=== PATIENT | female | born 1990 | race Caucasian/White ===

== ENCOUNTER → 2018-03-23 | Outpatient (CLI) | payer BC ==
--- NOTE | 2018-03-23 12:51 | Diagnostic Imaging Report ---
INDICATION: Anatomic survey. COMPARISON: None available. TECHNIQUE: Multiple real-time grayscale images were obtained over the gravid uterus. FINDINGS: A single live intrauterine gestation is identified in a transverse presentation. The placenta is anteriorly positioned and low lying with a marginal placenta previa. No evidence of placental abruption. cardiac motion is documented at 156 beats per minute. Amniotic fluid index is within normal limits. The intracranial contents are unremarkable. The spine is not well seen secondary to lie. The urinary bladder, four-chamber heart, and three-vessel cord are unremarkable. Prominence of the bilateral renal pelves, with the right measuring 4 mm and left measuring 3 mm. biometrics are symmetric. They are consistent with an estimated gestational age of 21 weeks and 3 days. Therefore, there is an estimated due date based upon this examination of July 26, 2018. Findings are consistent with clinical dating. IMPRESSION: Single live intrauterine gestation in a transverse presentation. Estimated gestational age is 21 weeks and 3 days. Findings are consistent with clinical dating. Marginal placenta previa. Recommend followup ultrasound prior to delivery. The spine is not well visualized secondary to lie, and the bilateral renal pelves are prominent. Recommend a followup ultrasound in 4-6 weeks to reevaluate. Biometrical measurements are as follows: Biparietal 4.86 cm, age 20 weeks 5 days. Head circumference 19.02 cm, age 21 weeks 3 days. Abdominal circumference 16.35 cm, age 21 weeks 3 days. Femur length 3.65 cm, age 21 weeks 5 days. Sonographic estimated age: 21 weeks 3 days. Sonographic estimated date of delivery: 07/31/18. Estimated Weight: 424 gm (+/- 62 gm). LMP percentile: 15%. heart rate: 156 beats per minute. number: 1 of 1. Dictated by: Dictated on workstation # [id number]
== END ==
LOC: RAD 09:47
PROVIDERS: ATTEND Obstetrics & Gynecology
DX: Z36.89 Encounter for other specified antenatal screening (principal); Z3A.21 21 weeks gestation of pregnancy
CPT/HCPCS: 76805

== ENCOUNTER 2018-07-26 13:53 | Observation (INO) | payer BC ==
[~2018-07-26] VITALS: Ht 157.5 cm; Wt 101.4 kg
--- NOTE | 2018-07-26 13:45 | NUR ---
LORELEI BERRY presented to unit via ambulation, with c/o CONTRACTIONS. LORELEI BERRY weighed, gowned, voided, and to bed. EFHM and TOCO applied, VS taken. LORELEI BERRY oriented to bed controls, call light, TV, heat, and A/C controls.
[2018-07-26 14:05] VITALS: BP 107/55
--- NOTE | 2018-07-26 14:24 | NUR ---
Dr Rodriguez called and notified of pt arrival, c/o ctx since this am, increased discharge and some vaginal bleeding. Notified of FHR, ctx pattern, SVE, nitrazine, other assessment findings. Order to run UA and monitor for now.
[2018-07-26 14:48] LABS: BILIRUBIN,URINE NEGATIVE (NEGATIVE); CLARITY,URINE SLIGHTLY CLOUDY; COLOR,URINE YELLOW; GLUCOSE, URINE (UA) NEGATIVE (NEGATIVE); KETONES,URINE NEGATIVE (NEGATIVE); LEUKOCYTE ESTERASE ,URINE 3+ (NEGATIVE); NITRITE,URINE NEGATIVE (NEGATIVE); PH,URINE 6 (5-9); PROTEIN,URINE 1+ (NEGATIVE); UROBILINOGEN,URINE NORMAL (NORMAL)
[2018-07-26 14:56] LABS: BACTERIA,URINE FEW /HPF; WBC,URINE 50-100 /HPF
[2018-07-26 15:55] VITALS: BP 113/58
--- NOTE | 2018-07-26 16:56 | NUR ---
Dr Rodriguez updated on pt status. Order rec'd to start IV, give IV fluids and abx. Dr will come see pt after clinic.
[2018-07-26] MEDS ORDERED: cefTRIAXone FOR IV USE 1,000 MG in WATER (STERILE) FOR INJECTION 10 ML IV ONE (17:15)
[2018-07-26] MEDS ORDERED: D5 LR IV SOLUTION 1,000 ML IV SCH (17:15)
[2018-07-27 07:25] VITALS: BP 101/57
--- NOTE | 2018-07-27 07:51 | History & Physical-OB ---
OB - Chief Complaint & HPI Date/Time Date of Admission: Date of Admission: Date seen by a Provider: Jul 27, 2018 Time Seen by a Provider: 07:30 Chief Complaint/History OB-Reason for Admission/Chief: Hx : 1 Expected Date of Delivery: Jul 26, 2018 Gestational Age in Weeks: 40 Gestational Age in Days: 0 Other reason for admission: Patient presented yesterday for contractions. Reports that they have slowed and lessened in intensity overnight. Admission Nurse Assessment Rev: Yes Allergies and Home Medications Allergies Coded Allergies: No Known Drug Allergies (Unverified , 07/26/18) Patient Home Medication List Home Medication List Reviewed: Yes OB - History Hx of Present Care: Yes Ultrasounds: Normal mid trimester US Obstetrical Complications: None Medical Complications: None Obstetrical History Hx : 1 Patient Past Medical History n/a Social History/Family History Recent Infectious Disease Expo: No Immunizations Date of Influenza Vaccine: Feb 06, 2019 OB - Admission Exam Physical Exam Vitals: Vital Signs 07/26/18 07/26/18 15:55 20:00 Temp 98.5 Pulse 63 Resp 16 B/P (MAP) 113/58 (76) HEENT: NCAT Heart: Rhythm Normal Lungs: Clear Abdomen: Gravid Extremities: Normal Reflexes: Normal Cervical Dilatation: 1cm Effacement: 75% Station: -1 Membranes: Intact Amniotic Fluid: Clear Heart Rate: 130's Accelerations: Accelerations Present Decelerations: No Decelerations Short Term Variability: Present Sizer Machine Variability: Average (6-25) Contractions on Admission: 6-10 Minutes Apart Intensity: Mild Labs Laboratory Tests Test 07/26/18 14:15 Range/Units Urine Color YELLOW Urine Clarity SLIGHTLY CLOUDY Urine pH 6 5-9 Urine Specific [place] 1.020 1.016-1.022 Urine Protein 1+ H NEGATIVE Urine Glucose (UA) NEGATIVE NEGATIVE Urine Ketones NEGATIVE NEGATIVE Urine Nitrite NEGATIVE NEGATIVE Urine Bilirubin NEGATIVE NEGATIVE Urine Urobilinogen NORMAL NORMAL MG/DL Urine Leukocyte Esterase 3+ H NEGATIVE Urine RBC (Auto) 5+ H NEGATIVE Urine RBC 10-25 H /HPF Urine WBC 50-100 H /HPF Urine Squamous Epithelial Cells 10-25 H /HPF Urine Crystals NONE /LPF Urine Bacteria FEW H /HPF Urine Casts NONE /LPF Urine Mucus NEGATIVE /LPF Urine Culture Indicated YES OB - Assessment/Plan/Diagnosis Assessment Admission Dx 28 yo @ 40 weeks Prolonged latent phase labor GBS neg Admission Status: Observation Reason for Inpatient Admission: Prolonged latent phase labor Plan Other Plan DC patient home with labor precautions. Scheduled induction for Monday. MIGUELANGEL YA DO Jul 27, 2018 07:51
--- NOTE | 2018-07-27 08:08 | NUR ---
Discharge instructions explained to pt with copy provided to pt. Pt verbalizes understanding of instructions, denies questions or concerns at this time. Instructed pt to return Monday night around 1900 for IOL. Ambulates self off unit accompanied by family to private vehicle. No s/s of distress noted.
--- OUTSIDE RECORDS SUMMARY | 2018-07-27 09:21 | XMS REPORT ---
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
--- OUTSIDE RECORDS SUMMARY | 2018-07-27 09:21 | XMS REPORT ---
Author Author LUCHO HOLMAN Organization [facility] Address [address] [place] [address] Care Team Providers Care School Counsellor Name Role Phone LUCHO HOLMAN Unavailable PROBLEMS Unknown Problems ALLERGIES No Information ENCOUNTERS Encounter Location Date Diagnosis [place] [id number] [place] [phone] Jan, Encounter for immunization Z23 [place] [id number] [place] [phone] Mar, Encounter for immunization Z23 [place] [id number] [place] [phone] August, Adjustment disorder, unspecified type F43.20 IMMUNIZATIONS Vaccine Route Administration Date Status FLUARIX QUAD (3 AND UP) 2017 IM Intramuscular Feb 08, 2017 Administered SOCIAL HISTORY Never Assessed REASON FOR VISIT Flu shot PLAN OF CARE VITAL SIGNS MEDICATIONS Unknown Medications RESULTS No Results PROCEDURES Procedure Date Ordered Result Body Site FLUARIX QUAD (3 & UP)-GSK-2014Feb 08, 2017 SINGLE IMMUNIZATION ADMIN Feb 08, 2017 INSTRUCTIONS MEDICATIONS ADMINISTERED No Known Medications
== END 2018-07-27 09:00 | disposition home or self-care (01) ==
LOC: WSo 13:53 → LDRP 13:53 → WSo 07-27 09:00 → LDRP 07-27 09:00
PROVIDERS: ADMIT Obstetrics & Gynecology; ATTEND Obstetrics & Gynecology
DX: O47.1 False labor at or after 37 completed weeks of gestation (principal); Z3A.40 40 weeks gestation of pregnancy
CPT/HCPCS: 81000; 87088; 96361; 96374

== ENCOUNTER 2018-07-29 05:49 | Inpatient (IN) | payer BC ==
[~2018-07-29] VITALS: Ht 170.2 cm; Wt 100.2 kg
[2018-07-29] VITALS (38 sets, daily range): BP systolic 87–123; BP diastolic 44–84
--- NOTE | 2018-07-29 05:57 | NUR ---
LORELEI BERRY presented to unit via ambulation from ED, accompanied by s.o. and family members, with c/o CONTRACTIONS. LORELEI BERRY weighed, gowned, voided, and to bed. EFHM and TOCO applied, VS taken. LORELEI BERRY oriented to bed controls, call light, TV, heat, and A/C controls.
[2018-07-29] MEDS ORDERED: D5 LR IV SOLUTION 1,000 ML IV SCH (06:13)
[2018-07-29] MEDS ORDERED: MINERAL OIL CONCENTRATE 99.9% 15 ML UDC TOP PRN (06:15)
[2018-07-29] MEDS ORDERED: D5 LR IV SOLUTION 1,000 ML IV ONE (06:38)
[2018-07-29 06:42] LABS: BILIRUBIN,URINE NEGATIVE (NEGATIVE); CLARITY,URINE CLEAR; COLOR,URINE YELLOW; GLUCOSE, URINE (UA) NEGATIVE (NEGATIVE); KETONES,URINE NEGATIVE (NEGATIVE); LEUKOCYTE ESTERASE ,URINE 2+ (NEGATIVE); NITRITE,URINE NEGATIVE (NEGATIVE); PH,URINE 7 (5-9); PROTEIN,URINE NEGATIVE (NEGATIVE); UROBILINOGEN,URINE NORMAL (NORMAL)
[2018-07-29 06:56] LABS: BACTERIA,URINE FEW /HPF
--- NOTE | 2018-07-29 07:53 | History & Physical-OB ---
OB - Chief Complaint & HPI Date/Time Date of Admission: Date of Admission: Jul 29, 2018 at 06:13 Date seen by a Provider: Jul 29, 2018 Time Seen by a Provider: 07:50 Chief Complaint/History OB-Reason for Admission/Chief: Onset of Labor Hx : 1 Hx Para: 0 Expected Date of Delivery: Jul 26, 2018 Gestational Age in Weeks: 40 Gestational Age in Days: 3 Admission Nurse Assessment Rev: Yes History of Labs O pos Antibody neg RNI HBsAg NR HIV NR GC neg GBS neg Allergies and Home Medications Allergies Coded Allergies: No Known Drug Allergies (Unverified , 07/26/18) Home Medications No Active Prescriptions or Reported Meds Patient Home Medication List Home Medication List Reviewed: Yes OB - History Hx of Present Care: Yes Ultrasounds: Normal mid trimester US Obstetrical Complications: None Medical Complications: None Obstetrical History Hx : 1 Hx Para: 0 Patient Past Medical History n/a Social History/Family History Recent Infectious Disease Expo: No Immunizations Date of Influenza Vaccine: Feb 06, 2019 OB - Admission Exam Physical Exam Vitals: Vital Signs 07/29/18 06:20 Temp 97.5 Pulse 61 Resp 20 B/P (MAP) 113/59 (77) O2 Delivery Room Air HEENT: NCAT Heart: Rhythm Normal Lungs: Clear Abdomen: Gravid Extremities: Normal Reflexes: Normal Cervical Dilatation: 3cm Effacement: 75% Station: -1 Membranes: Intact Heart Rate: 130's Accelerations: Accelerations Present Decelerations: No Decelerations Short Term Variability: Present 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 Variability: Average (6-25) Contractions on Admission: < 5 Minutes Apart Intensity: Moderate Labs Laboratory Tests Test 07/29/18 06:30 Range/Units Urine Color YELLOW Urine Clarity CLEAR Urine pH 7 5-9 Urine Specific [place] 1.005 L 1.016-1.022 Urine Protein NEGATIVE NEGATIVE Urine Glucose (UA) NEGATIVE NEGATIVE Urine Ketones NEGATIVE NEGATIVE Urine Nitrite NEGATIVE NEGATIVE Urine Bilirubin NEGATIVE NEGATIVE Urine Urobilinogen NORMAL NORMAL MG/DL Urine Leukocyte Esterase 2+ H NEGATIVE Urine RBC (Auto) 4+ H NEGATIVE Urine RBC 2-5 H /HPF Urine WBC 5-10 H /HPF Urine Squamous Epithelial Cells 5-10 /HPF Urine Crystals NONE /LPF Urine Bacteria FEW H /HPF Urine Casts NONE /LPF Urine Mucus NEGATIVE /LPF Urine Culture Indicated NO OB - Assessment/Plan/Diagnosis Assessment Assessment: active labor Admission Dx 28 yo @ 40.3 Active labor GBS neg Admission Status: Inpatient Order (span 2 midnights) Reason for Inpatient Admission: Term active labor Plan Plan: Expectant Management MIGUELANGEL YA DO Jul 29, 2018 07:52
[2018-07-29 08:10] LABS: BASOPHILS % (AUTO) 0 % (0-10); EOSINOPHILS % (AUTO) 0 % (0-10); HEMATOCRIT 39 % (35-52); HEMOGLOBIN 13.7 G/DL (11.5-16.0); LYMPHOCYTES # (AUTO) 1.4 X 10^3 (1.0-4.0); LYMPHOCYTES % (AUTO) 18 % (12-44); MEAN CORPUSCULAR HEMOGLOBIN 32 PG (25-34); MEAN CORPUSCULAR HGB CONC 35 G/DL (32-36); MEAN CORPUSCULAR VOLUME 91 FL (80-99); MONOCYTES # (AUTO) 0.3 X 10^3 (0.0-1.0); MONOCYTES % (AUTO) 4 % (0-12); NEUTROPHILS # (AUTO) 5.9 X 10^3 (1.8-7.8); NEUTROPHILS % (AUTO) 78 % (42-75); PLATELET COUNT 187 10^3/uL (130-400); RED CELL DISTRIBUTION WIDTH 13.1 % (10.0-14.5); WHITE BLOOD COUNT 7.6 10^3/uL (4.3-11.0)
[2018-07-29] MEDS ORDERED: LIDOCAINE/EPI 2% 1:200,00 (XYLOCAINE) 10 ML VIAL ONE (08:12)
[2018-07-29] MEDS ORDERED: SUFENTA 0.6MCG/ML BUPIVA 0.125 100 ML ONE (08:13)
[2018-07-29] MEDS ORDERED: ONDANSETRON 4 MG/2 ML (SDV) Z0FRAN ONE (08:14)
[2018-07-29] MEDS ORDERED: ONDANSETRON 4 MG/2 ML (SDV) Z0FRAN IVP PRN (08:15)
[2018-07-29] MEDS ORDERED: fentaNYL INJECTION 100 MCG/2 ML AMP ONE (08:51)
[2018-07-29] MEDS ORDERED: BUPIVACAINE 0.25% 30 ML (SENSORCAINE) VIAL ONE (08:51)
[2018-07-29] MEDS ORDERED: LIDOCAINE PF 2% 5 ML (XYLOCAINE) VIAL ONE (08:51)
--- NOTE | 2018-07-29 08:58 | NUR ---
here for epidural placement. Procedure explained, consent reviewed and signed by anesthesia. Questions answered to patient's satisfaction. Time out taken to verify correct patient/procedure. Patient up to side of bed, assisted into sitting position. Betadine prep done x3 and sterile drape applied. Local done, see anesthesia record. Test dose given, see anesthesia record for drug and dosage. Epidural catheter secured in place. Epidural placement complete. Assisted back into bed, monitors adjusted. Epidural dosed, see anesthesia record. Epidural of Sufenta/Bupvicaine @__12____cc/hr stated per pump. Patient tolerated procedure well.
[2018-07-29] MEDS ORDERED: LACTATED RINGERS 1,000 ML IV ONE (09:33)
[2018-07-29] MEDS ORDERED: OXYTOCIN/NORMAL SALINE 500 ML IV ONE ×2 (09:42→15:09)
[2018-07-29] MEDS ORDERED: ONDANSETRON 4 MG/2 ML (SDV) Z0FRAN IV PRN (09:45)
[2018-07-29] MEDS ORDERED: NALOXONE 0.4 MG/ML 1 ML (NARCAN) VIAL IV PRN (09:45)
[2018-07-29] MEDS ORDERED: diphenhydrAMINE 50 MG/ML INJ (BENADRYL) IV PRN (09:45)
[2018-07-29] MEDS ORDERED: CATHETER FLUSH 10 ML SYR IV PRN (09:45)
[2018-07-29] MEDS ORDERED: EPIDURAL (SUFENTA 0.6MCG/ML BUPIVA 0.125%) 100 ML BAG EPI SCH (09:45)
[2018-07-29] MEDS ORDERED: PREN1TAB79 PO (10:43)
[2018-07-29] MEDS ORDERED: LIDOCAINE/EPI 1%-1:200,000 (XYLOCAINE) 10 ML VIAL INJ ONE (11:00)
[2018-07-29] MEDS ORDERED: LIDOCAINE/EPI 2% 1:200,00 (XYLOCAINE) 10 ML VIAL INJ ONE (11:00)
[2018-07-29] MEDS ORDERED: OXYTOCIN/NORMAL SALINE 500 ML IV SCH ×2 (13:26→14:51)
[2018-07-29] MEDS ORDERED: CATHETER FLUSH 10 ML SYR IV SCH ×2 (14:00→22:00)
--- NOTE | 2018-07-29 14:28 | NUR ---
REPAIR OF RT MEDIOLATERAL CA STARTED BY DR WITH 3-0 VICRYL RAPIDE AND 2-0 VICRYL SUTURES , PT TOLERATED WELL.
--- NOTE | 2018-07-29 14:35 | NUR ---
REPAIR COMPLETED BY DR, SPONTANEOUS DELIVERY OF PLACENTA, INTACT, PITOCIN STARTED WIDE OPEN PER DR ORDER, FUNDAL MASSAGED COMPLETED BY DR AND RN, MOD LOCHIA NOTED.
--- NOTE | 2018-07-29 14:40 | NUR ---
FFU/2, LT/MOD LOCHIA NOTED, DR REASSESSED EPSI SITE AND CONTINUED SUTURES NEEDED, PT TOLERATED WELL.
--- NOTE | 2018-07-29 14:50 | NUR ---
LT PERIURETHRAL LAC NOTED WHILE INSPECTING PERINEUM DR YA AT BEDSIDE VISUALIZED LAC WELL, NOT ACTIVELY BLEEDING AT THIS TIME, WILL MONITOR. PERICARE COMPLETED, PAD AND PANTIES APPLIED, PT REPOSITIONED BED, NO DISTRESS NOTED,
--- NOTE | 2018-07-29 14:55 | NUR ---
EPIDURAL REMOVED, BLACK TIP NOTED NO DISTRESS NOTED. PT REPOSITIONED IN BED, NEW GOWN ON , FFU/2 LT LOCHIA NOTED.
--- NOTE | 2018-07-29 14:56 | NUR ---
INFANT GIVEN TO MOTHER BY CRESCENCIO ACOSTA RN, SKIN TO SKIN AT THIS TIME, NO DISTRESS NOTED.
[2018-07-29] MEDS ORDERED: TETANUS,DIPTH,PERTUSS P/F (BOOSTRIX) 0.5 ML VIAL IM ONE (15:00)
[2018-07-29] MEDS ORDERED: WITCH HAZEL(TUCKS) 40 EA JAR TOP PRN (15:00)
[2018-07-29] MEDS ORDERED: DIBUCAINE (NUPERCAINAL) 1% OINT 30 GM TOP PRN (15:00)
[2018-07-29] MEDS ORDERED: HYDROcodone/APAP 5 MG/325 MG (LORTAB) TAB PO PRN (15:00)
[2018-07-29] MEDS ORDERED: MEASLES,MUMPS,RUBELLA 1 EA INJ SQ ONE (15:00)
--- NOTE | 2018-07-29 15:00 | OB Labor & Delivery Record ---
L&D History Date of Service Date of Service: Jul 29, 2018 History Expected Date of Delivery: Jul 26, 2018 Gestational Age in Weeks: 40 Hx : 1 Hx Para: 0 Complications Events: Routine care Operative Indications (Cesarea: N/A-Vaginal Delivery Intrapartal Events: None L&D Stage1 Stage One Onset of Labor - Date: Jul 29, 2018 Monitors and Tracing Monitor Mode: External Heart Rate: 140 Monitor Accelerations: Uniform Station: -1 Vital Signs VS - Last 72 Hours, by Label 07/29/18 07/29/18 07/29/18 07/29/18 06:20 07:40 08:15 08:40 Temp 97.5 97.8 Pulse 61 61 77 60 Resp 20 18 18 18 B/P (MAP) 113/59 (77) 111/68 (82) 123/65 (84) 104/58 (73) O2 Delivery Room Air Room Air Room Air Room Air 07/29/18 07/29/18 07/29/18 07/29/18 09:05 09:10 09:13 09:16 Pulse 76 61 65 58 Resp 22 22 22 22 B/P (MAP) 107/72 (84) 123/59 (80) 114/73 (87) 106/71 (83) Pulse Ox 96 99 99 99 O2 Delivery Room Air Room Air Room Air Room Air 07/29/18 07/29/18 07/29/18 07/29/18 09:19 09:22 09:25 09:28 Pulse 92 73 70 70 Resp 22 22 22 22 B/P (MAP) 110/59 (76) 118/63 (81) 97/56 (70) Pulse Ox 96 94 95 95 O2 Delivery Room Air Room Air Room Air Room Air 07/29/18 09:40 Pulse 84 Resp 22 B/P (MAP) Pulse Ox 94 O2 Delivery Room Air Rupture of Membranes Spontaneous Ruture of Membrane: No Amniotic Membrane Rupture Time: 08:00 Amniotic Membrane Fluid Desc.: Meconium Stained Vaginal Bleeding Description: Normal Show Induction/Anesthesia Epidural Cath Placement - Time: 0908 Progress/Notes Arom was only augmentation used, patient progressed to complete and +2 station after receiving epidural for analgesia with good relief. L&D Stage2 Stage Two Stage II Date: Jul 29, 2018 Monitors and Tracing Monitor Mode: External Heart Rate: 140 Monitor Accelerations: Uniform Monitor Decelerations: Variable Care Home Variability: Average (6-10) Short Term Variability: Present Position: Right Occiput Anterior Presentation: Vertex Cord Descript/Complications Cord Vessel Description: 3 Vessels Delivery Type Delivery Method: Spontaneous Vaginal Anterior Shoulder: Left Episiotomy/Perineal Laceration Laceraction(s)/Extensions: Yes Episiotomy Description: Right Mediolateral Degree (describe repair) RML repaired using 3-0 and 2-0 rapide vicryl suture in usual fashion Condition of Infant Delivery 1 minute Comment: 8 5 minute Comment: 9 Notes Live female infant weight 7lbs 5 oz Condition of Condition of : Living Exam: No Observed Abnormalities Resuscitation Resuscitation: N/A - Spontaneous Resp L&D Stage3 Stage Three Stage III Date: Jul 29, 2018 Pictocin Pitocin Administration Comment: 30 mu wide open at delivery of placenta Placenta Delivery Placenta Delivery: Spontaneous Delivery Summary Summary Estimated blood loss (mL): 400 Attending at delivery: Miguelangel Ya DO Condition of Delivery Post Hemorrhage: Yes Condition of Mother stable Condition of Infant (s) stable MIGUELANGEL YA DO Jul 29, 2018 15:00
--- NOTE | 2018-07-29 15:00 | NUR ---
PT , CRESCENCIO RN AT BEDSIDE ASSISTED WITH LATCH.
[2018-07-29] MEDS ORDERED: IBUPROFEN 600 MG (MOTRIN) TAB PO ONE (15:09)
--- NOTE | 2018-07-29 15:10 | NUR ---
SCHEDULED MOTRIN GIVEN PO PER ORDER, PITOCIN BAG X 2 HUNG,
[2018-07-29] MEDS: IBUPROFEN 600 MG (MOTRIN) TAB PO SCH ×2 (15:12→21:11)
--- NOTE | 2018-07-29 15:19 | NUR ---
INFANT MOVED TO LT BREAST TO CONTINUE NO DIFFICULTY NOTED, MOTHER PLEASED, CONTENT.
--- NOTE | 2018-07-29 15:55 | NUR ---
FAMILY AND FRIENDS TO PTS SIDE PER HER REQUEST, NO DISTRESS NOTED, NO QUESTIONS OR CONCERNS NOTED.
--- NOTE | 2018-07-29 16:30 | NUR ---
PT WELL WITHOUT DIFFICULTY, MOTHER PLEASED, VSS, FFU/2 LT LOCHIA NOTED.
--- NOTE | 2018-07-29 17:15 | NUR ---
VSS, PT AMBULATED TO BR WITH RN AT SIDE, VOIDED WITHOUT DIFFICULTY, PERICARE EXPLAINED AND COMPLETED, MOD LOCHIA NOTED, PT BACK TO BED FOR RN TO ASSESS VAGINAL BLEEDING. NO CLOTS NOTED, FFU/1, FIRM, LT PERIURETHRAL TEAR NOTED TO BE OOZING, PRESSURE HELD WITH GAUZE BY RN AND BLEEDING STOPPED QUICKLY. NEW PAD AND PANTIES ON, PT TRANSPORTED BY WC TO PP ROOM 3311 FOR ROUTINE CARE. PT AND S/O VERBALIZE UNDERSTANDING OF PLAN OF CARE NO QUESTIONS OR CONCERNS NOTED, INFANT TO MOTHERS ARMS.
--- NOTE | 2018-07-29 18:34 | NUR ---
PT RESTING QUIETLY IN BED WITH INFANT AT SIDE, NO DISTRESS NOTED, WILL MONITOR CLOSELY.
[2018-07-29] MEDS: DOCUSATE SODIUM 100 MG (COLACE) CAP PO SCH (21:11)
--- NOTE | 2018-07-29 21:12 | NUR ---
PT RESTING IN BED. ASSESSMENT COMPLETED. PT DENIES ANY INCREASE IN BLEEDING OR PAIN. IV DC'D. PT DENIES ANY NEEDS AT THIS TIME. WILL CONTINUE TO MONITOR
--- NOTE | 2018-07-29 23:17 | NUR ---
Report received from Vernon Vanessa RN and this RN will continue with care of pt.
[2018-07-30] MEDS: BENZOCAINE/MENTHOL (DERMOPLAST) 56 ML CAN TP PRN ×2 (02:15→12:43)
[2018-07-30 03:00] VITALS: BP 99/59
[2018-07-30] MEDS: IBUPROFEN 600 MG (MOTRIN) TAB PO SCH ×3 (03:00→14:27)
[2018-07-30 06:09] LABS: BASOPHILS % (AUTO) 0 % (0-10); EOSINOPHILS % (AUTO) 0 % (0-10); HEMATOCRIT 33 % (35-52); HEMOGLOBIN 11.6 G/DL (11.5-16.0); LYMPHOCYTES # (AUTO) 1.3 X 10^3 (1.0-4.0); LYMPHOCYTES % (AUTO) 16 % (12-44); MEAN CORPUSCULAR HEMOGLOBIN 32 PG (25-34); MEAN CORPUSCULAR HGB CONC 35 G/DL (32-36); MEAN CORPUSCULAR VOLUME 93 FL (80-99); MEAN PLATELET VOLUME 10.6 FL (7.4-10.4); MONOCYTES # (AUTO) 0.5 X 10^3 (0.0-1.0); MONOCYTES % (AUTO) 6 % (0-12); NEUTROPHILS # (AUTO) 6.3 X 10^3 (1.8-7.8); NEUTROPHILS % (AUTO) 78 % (42-75); PLATELET COUNT 156 10^3/uL (130-400); RED CELL DISTRIBUTION WIDTH 13.3 % (10.0-14.5); WHITE BLOOD COUNT 8.1 10^3/uL (4.3-11.0)
[2018-07-30] MEDS ORDERED: PRENATAL VITAMIN 1 EA TAB PO SCH (07:00)
[2018-07-30] MEDS ORDERED: FERROUS SULF 325 MG (IRON) TAB PO SCH (08:00)
--- NOTE | 2018-07-30 08:17 | Postpartum Progress Note ---
Note Note Day # [] Subjective: Patient is without complaints. Ambulating, voiding. Tolerating a regular diet without nausea or vomiting. Normal lochia. Pain is well controlled with oral pain medications. Objective: Physical Exam: General - Alert and oriented, no apparent distress Abdomen - Soft, appropriately tender to palpation, non-distended, fundus firm at umbilicus Extremities - no edema, negative Gary's bilaterally Assessment: PPD 1 NVD Plan: Routine care. Encourage breast feeding. Encourage ambulation. Ferrous sulfate supplementation. Plan for discharge today Vitals - Labs Vital Signs - I&O Vital Signs Date Time Temp Pulse Resp B/P (MAP) Pulse Ox O2 Delivery O2 Flow Rate FiO2 07/30/18 03:00 97.9 56 18 99/59 (72) 96 Room Air 07/29/18 22:13 98.5 61 18 91/58 (69) Room Air 07/29/18 18:00 98.1 64 18 87/54 (65) Room Air 07/29/18 17:10 98.0 72 18 118/84 (95) Room Air 07/29/18 16:15 97.8 68 22 99/54 (69) Room Air 07/29/18 16:09 63 22 100/55 (70) Room Air 07/29/18 15:55 64 22 96/52 (67) Room Air 07/29/18 15:40 62 22 94/53 (67) Room Air 07/29/18 15:24 65 22 107/52 (70) Room Air 07/29/18 15:09 66 22 102/55 (71) Room Air 07/29/18 15:00 72 22 97/55 (69) Room Air 07/29/18 14:45 67 22 100/59 (73) Room Air 07/29/18 14:30 87 22 102/57 (72) Non Rebreather 10.00 07/29/18 14:15 61 22 109/69 (82) Room Air 07/29/18 14:00 97.3 66 22 101/56 (71) 07/29/18 13:45 66 22 112/57 (75) 99 Room Air 07/29/18 13:30 72 22 99 Room Air 07/29/18 13:15 71 22 96/61 (73) 99 Room Air 07/29/18 13:00 60 22 101/69 (80) 99 Room Air 07/29/18 12:45 68 22 100/55 (70) 99 Room Air 07/29/18 12:15 69 22 94 Room Air 07/29/18 12:00 63 22 92/57 (69) 97 Room Air 07/29/18 11:45 75 22 90/53 (65) 98 Room Air 07/29/18 11:30 69 22 92/55 (67) 99 Room Air 07/29/18 11:15 78 22 92/55 (67) 97 Room Air 07/29/18 11:00 97.6 72 22 94/48 (63) 97 Room Air 07/29/18 10:45 63 22 97/53 (68) 97 Room Air 07/29/18 10:30 85 22 87/53 (64) 97 Room Air 07/29/18 10:15 60 22 91/55 (67) 97 Room Air 07/29/18 09:55 64 22 87/44 (58) 98 Room Air 07/29/18 09:40 84 22 94 Room Air 07/29/18 09:28 70 22 95 Room Air 07/29/18 09:25 70 22 97/56 (70) 95 Room Air 07/29/18 09:22 73 22 118/63 (81) 94 Room Air 07/29/18 09:19 92 22 110/59 (76) 96 Room Air 07/29/18 09:16 58 22 106/71 (83) 99 Room Air 07/29/18 09:13 65 22 114/73 (87) 99 Room Air 07/29/18 09:10 61 22 123/59 (80) 99 Room Air 07/29/18 09:05 76 22 107/72 (84) 96 Room Air 07/29/18 08:40 60 18 104/58 (73) Room Air I & O 07/30/18 07:00 Intake Total 3000 ml Balance 3000 ml Labs Laboratory Tests 07/30/18 05:58: White Blood Count 8.1, Red Blood Count 3.59L, Hemoglobin 11.6, Hematocrit 33L, Mean Corpuscular Volume 93, Mean Corpuscular Hemoglobin 32, Mean Corpuscular Hemoglobin Concent 35, Red Cell Distribution Width 13.3, Platelet Count 156, Mean Platelet Volume 10.6H, Neutrophils (%) (Auto) 78H, Lymphocytes (%) (Auto) 16, Monocytes (%) (Auto) 6, Eosinophils (%) (Auto) 0, Basophils (%) (Auto) 0, Neutrophils # (Auto) 6.3, Lymphocytes # (Auto) 1.3, Monocytes # (Auto) 0.5, Eosinophils # (Auto) 0.0, Basophils # (Auto) 0.0 MIGUELANGEL YA DO Jul 30, 2018 08:17
--- NOTE | 2018-07-30 08:18 | Discharge Inst-Women's Service ---
Discharge Inst-Women's Serv Depart Medication/Instructions New, Converted or Re-Newed RX: RX on Chart Consults/Follow Up Additional Follow Up: Yes Orders/Referrals Dr. Ya in 6 weeks Activity Activity: Activity as Tolerated Driving Instructions: No Driving for 1 Week NO SMOKING: NO SMOKING Nothing Inside Vagina: No Douching, No [place], No Tampons Diet Discharge Diet: No Restrictions Symptoms to Report to : Bleeding Excessive, Pain Increased, Fever Over 101 Degrees F, Vaginal Bleeding Increase, Questions/Concerns For Any Problems or Questions: Contact Your Physician MIGUELANGEL YA DO Jul 30, 2018 08:18
[2018-07-30] MEDS ORDERED: IBUP-844 PO (08:20)
[2018-07-30] MEDS ORDERED: DOCU100C37 PO (08:20)
[2018-07-30] MEDS ORDERED: DIBU30OI TOP (08:20)
[2018-07-30] MEDS ORDERED: Benzocaine/Menthol TP (08:20)
[2018-07-30] MEDS ORDERED: ACHD5005 PO (08:20)
--- NOTE | 2018-07-30 08:30 | NUR ---
Dr Rodriguez to see patient and new orders for discharge received.
[2018-07-30 09:10] VITALS: BP 102/51
[2018-07-30] MEDS: DOCUSATE SODIUM 100 MG (COLACE) CAP PO SCH (09:19)
[2018-07-30 14:25] VITALS: BP 103/55
--- NOTE | 2018-07-30 14:29 | NUR ---
fresh ice water to bedside table.
--- NOTE | 2018-07-30 17:10 | Anesthesia-Regional Post-Op ---
Regional Patient Condition Mental Status: Alert, Oriented x3 Circulation: Same as Pre-Op Headache: Absent Sensation: Full Recovery Motor Block: Absent Post Op Complications Complications None Follow Up Care/Instructions Patient Instructions None needed. Anesthesia/Patient Condition Patient is doing well, no complaints, stable vital signs, no apparent adverse anesthesia problems. No complications reported per nursing. MATTIE WANG CRNA Jul 30, 2018 17:10
--- NOTE | 2018-07-30 18:30 | NUR ---
Discharge instructions explained, signed and copy to patient. pt verbalized understanding of instructions and denied questions.
--- NOTE | 2018-07-30 18:35 | NUR ---
Discharged to room in parent at this time. remains pt in nsy
--- NOTE | 2018-08-01 15:13 | Physician Query-Final Dx ---
Final Diagnosis Give Final Diagnosis Please give Final Diagnosis DOMONIQUE DONALDSON Aug 01, 2018 15:13
== END 2018-07-30 18:30 | disposition home or self-care (01) | DRG 806 ==
LOC: WSo 05:49 → LDRP 06:13
PROVIDERS: ADMIT Obstetrics & Gynecology; ATTEND Obstetrics & Gynecology
PROC: 10E0XZZ Delivery of Products of Conception, External Approach (ICD-10-PCS; principal; 2018-07-30)
PROC: 0W8NXZZ Division of Female Perineum, External Approach (ICD-10-PCS; 2018-07-30)
DX: O77.0 Labor and delivery complicated by meconium in amniotic fluid (principal); O72.1 Other immediate postpartum hemorrhage; Z37.0 Single live birth; Z3A.40 40 weeks gestation of pregnancy
CPT/HCPCS: 36415; 81000; 85025; 86850; 86900; 86901; 99212

== ENCOUNTER → 2019-02-05 | Outpatient (CLI) | payer BC, MEDICAID ==
[~2019-02-05] MED LIST: ACHD5005 PO; Benzocaine/Menthol TP; DIBU30OI TOP; DOCU100C37 PO; IBUP-844 PO; PREN1TAB79 PO
--- NOTE | 2019-02-05 16:33 | Diagnostic Imaging Report ---
INDICATION: survey. TECHNIQUE: Multiple real-time grayscale images were obtained over the gravid uterus. COMPARISON: None. FINDINGS: There is a single live fetus in a variable presentation. heart rate was recorded at 155 beats per minute. The placenta is anterior. Amniotic fluid volume appears normal. Cervical length is approximately 3.4 cm. Overall survey is somewhat limited due to position and maternal body habitus. kidneys, bladder, and stomach are unremarkable. brain is unremarkable. Four-chamber heart view was limited. There is a three-vessel cord with normal insertion. spine is unremarkable. Biometrical measurements are as follows: Biparietal 4.21 cm, age 18 weeks 6 days. Head circumference 16.64 cm, age 19 weeks 3 days. Abdominal circumference 14.72 cm, age 20 weeks 1 days. Femur length 3.03 cm, age 19 weeks 3 days. Sonographic estimate age: 19 weeks 4 days. Sonographic estimated date of delivery: 06/28/2019. Estimated Weight: 304 gm (+/- 44 gm). LMP percentile: 15%. heart rate: 155 beats per minute. number: 1 of 1. IMPRESSION: Single live IUP of approximately 19 weeks 4 days gestational age. The estimated date of confinement sonographically is 06/28/2019. survey is grossly unremarkable, although the four-chamber heart view was limited. Follow-up could be performed. Dictated by: Dictated on workstation # [id number]
== END ==
LOC: RAD 14:55
PROVIDERS: ATTEND Nurse Practitioner Women's Health
DX: Z34.92 Encounter for supervision of normal pregnancy, unspecified, second trimester (principal); Z3A.19 19 weeks gestation of pregnancy
CPT/HCPCS: 76805

== ENCOUNTER 2019-06-15 11:27 | Outpatient (CLI) | payer BC, MEDICAID ==
[~2019-06-15] VITALS: Ht 170.2 cm; Wt 117.9 kg
[2019-06-15 11:27] VITALS: BP 92/66
--- NOTE | 2019-06-15 11:27 | NUR ---
LORELEI BERRY presented to unit from home, accompanied by , with c/o WATER BROKE. LORELEI BERRY weighed, gowned, voided, and to bed. EFHM and TOCO applied, VS taken. LORELEI BERRY oriented to bed controls, call light, TV, heat, and A/C controls.
--- NOTE | 2019-06-15 11:41 | NUR ---
Nitrazine exam performed=inconclusive. SVE 3/50%.
--- NOTE | 2019-06-15 11:55 | NUR ---
CASSIE collected and taken to lab.
--- NOTE | 2019-06-15 12:00 | NUR ---
Dr. Rodriguez notified of patient's arrival, exam, and complaints. New orders received.
--- NOTE | 2019-06-15 12:50 | NUR ---
Dr. Rodriguez here. Bedside sono performed to evaluate JOSE MANUEL. Speculum exam performed to assess for pooling. No pooling noted. EFM/BERE CALLOWAY'rajendra.
[2019-06-15] MEDS ORDERED: CALC-654 PO (13:09)
[2019-06-15] MEDS ORDERED: CYAN50003 PO (13:09)
--- NOTE | 2019-06-15 13:14 | NUR ---
Discharge instructions reviewed with patient both written and verbally. Patient verbalizes understanding and questions answered.
--- NOTE | 2019-06-15 13:16 | NUR ---
Patient discharged at this time and ambulated from the unit accompanied by family. No signs or symptoms of distress noted.
--- NOTE | 2019-06-17 08:13 | Physician Query-Final Dx ---
CARRI BRYANT 06/17/19 0813: Clinic Account Progress/Dx Physician Query: Please give diagnosis Please include # weeks gestation Date of Service Jun 15, 2019 at 11:27 MIGUELANGEL YA DO 06/17/19 1555: Clinic Account Progress/Dx DIAGNOSIS: Diagnosis 38 week IUP Vaginal discharge CARRI BRYANT Jun 17, 2019 08:13 MIGUELANGEL YA DO Jun 17, 2019 15:55
[2019-06-18] MEDS ORDERED: DOCU-244 PO (18:11)
[2019-06-18] MEDS ORDERED: ACHD5005 PO (18:11)
[2019-06-18] MEDS ORDERED: BENZ78AE2 TP (18:11)
[2019-06-18] MEDS ORDERED: IBUP-844 PO (18:11)
== END 2019-06-15 13:16 | disposition home or self-care (01) ==
LOC: WSo 11:27 → LDRP 11:27 → WSo 13:16
PROVIDERS: ATTEND Obstetrics & Gynecology
DX: O99.89 Other specified diseases and conditions complicating pregnancy, childbirth and the puerperium (principal); N89.8 Other specified noninflammatory disorders of vagina; Z3A.38 38 weeks gestation of pregnancy
CPT/HCPCS: 36415; 89060; 99214

== ENCOUNTER 2019-06-17 17:47 | Inpatient (IN) | payer BC, MEDICAID ==
[2019-06-17] VITALS (23 sets, daily range): BP systolic 89–132; BP diastolic 53–87
[~2019-06-17] VITALS: Ht 170.2 cm; Wt 118.6 kg
--- NOTE | 2019-06-17 17:28 | NUR ---
LORELEI BERRY presented to unit via ambulation, accompanied by and mother , with c/o contractions & leaking fluid. Pt. weighed, gowned, voided, and to bed. EFHM and TOCO applied, VS taken. Pt. oriented to bed controls, call light, TV, heat, and A/C controls.
[~2019-06-17 17:47] MED LIST changes: +CALC-654 PO; +CYAN50003 PO
--- NOTE | 2019-06-17 17:55 | NUR ---
reports "water broke" after calling WS prior to arrival r/t contractions. Nitrazine +. clear fluid noted. SVE 4cm, 80%, anterior, -1
--- NOTE | 2019-06-17 17:59 | NUR ---
was called r/t admission c/o's. admission orders received for labor.
[2019-06-17] MEDS ORDERED: D5 LR IV SOLUTION 1,000 ML IV SCH (18:09)
--- NOTE | 2019-06-17 18:42 | NUR ---
#20g IV x2 attempts by this RN to Rt. wrist. admission labs collected prior to IVF's infusing.
[2019-06-17 19:01] LABS: BASOPHILS % (AUTO) 0 % (0-10); EOSINOPHILS % (AUTO) 0 % (0-10); HEMATOCRIT 36 % (35-52); HEMOGLOBIN 12.3 G/DL (11.5-16.0); LYMPHOCYTES # (AUTO) 1.7 X 10^3 (1.0-4.0); LYMPHOCYTES % (AUTO) 15 % (12-44); MEAN CORPUSCULAR HEMOGLOBIN 31 PG (25-34); MEAN CORPUSCULAR HGB CONC 35 G/DL (32-36); MEAN CORPUSCULAR VOLUME 90 FL (80-99); MEAN PLATELET VOLUME 10.1 FL (7.4-10.4); MONOCYTES # (AUTO) 0.8 X 10^3 (0.0-1.0); MONOCYTES % (AUTO) 7 % (0-12); NEUTROPHILS # (AUTO) 8.6 X 10^3 (1.8-7.8); NEUTROPHILS % (AUTO) 77 % (42-75); PLATELET COUNT 268 10^3/uL (130-400); RED CELL DISTRIBUTION WIDTH 13.5 % (10.0-14.5); WHITE BLOOD COUNT 11.2 10^3/uL (4.3-11.0)
[2019-06-17] MEDS ORDERED: LACTATED RINGERS 1,000 ML IV ONE ×3 (19:13→20:36)
--- NOTE | 2019-06-17 19:15 | NUR ---
report given to ALMAZ Crowell.
[2019-06-17] MEDS ORDERED: SUFENTA 0.6MCG/ML BUPIVA 0.125 100 ML ONE (19:39)
[2019-06-17] MEDS ORDERED: fentaNYL INJECTION 100 MCG/2 ML AMP ONE (19:47)
[2019-06-17] MEDS ORDERED: BUPIVACAINE 0.25% 30 ML (SENSORCAINE) VIAL ONE (19:47)
[2019-06-17] MEDS ORDERED: NALOXONE 0.4 MG/ML 1 ML (NARCAN) VIAL IV PRN (20:45)
[2019-06-17] MEDS ORDERED: CATHETER FLUSH 10 ML SYR IV PRN (20:45)
[2019-06-17] MEDS ORDERED: EPIDURAL (SUFENTA 0.6MCG/ML BUPIVA 0.125%) 100 ML BAG EPI SCH (20:45)
[2019-06-17] MEDS: OXYTOCIN PRE-MIX DRIP 500 ML IV SCH (21:00)
[2019-06-17] MEDS ORDERED: CATHETER FLUSH 10 ML SYR IV SCH (22:00)
[2019-06-18] VITALS (18 sets, daily range): BP systolic 88–127; BP diastolic 49–78
[2019-06-18] MEDS ORDERED: OXYTOCIN PRE-MIX DRIP 500 ML IV SCH (01:13)
[2019-06-18] MEDS ORDERED: MEASLES,MUMPS,RUBELLA 1 EA INJ SQ ONE (01:15)
[2019-06-18] MEDS ORDERED: BENZOCAINE/MENTHOL (DERMOPLAST) 60 ML CAN TP PRN (01:15)
[2019-06-18] MEDS ORDERED: DIBUCAINE (NUPERCAINAL) 1% OINT 30 GM TOP PRN (01:15)
[2019-06-18] MEDS ORDERED: TETANUS,DIPTH,PERTUSS P/F (BOOSTRIX) 0.5 ML VIAL IM ONE (01:15)
[2019-06-18] MEDS ORDERED: HYDROcodone/APAP 5 MG/325 MG (LORTAB) TAB PO PRN (01:15)
[2019-06-18] MEDS ORDERED: WITCH HAZEL(TUCKS) 40 EA JAR TOP PRN (01:15)
--- NOTE | 2019-06-18 01:15 | NUR ---
Fundal massage done. Epidural off. minimal rubra noted.
--- NOTE | 2019-06-18 01:18 | History & Physical-OB ---
OB - Chief Complaint & HPI Date/Time Date of Admission: Date of Admission: Jun 17, 2019 at 6:09 pm Date seen by a Provider: Jun 18, 2019 Time Seen by a Provider: 00:45 Chief Complaint/History OB-Reason for Admission/Chief: Onset of Labor Hx : 2 Hx Para: 1 Expected Date of Delivery: Jun 23, 2019 Gestational Age in Weeks: 39 Gestational Age in Days: 1 Admission Nurse Assessment Rev: Yes History of Labs O pos Antibody neg RNI RPR NR HBsAg NR HIV NR GC neg GBS neg Allergies and Home Medications Allergies Coded Allergies: No Known Drug Allergies (Unverified , 07/26/18) Home Medications Calcium Carbonate/Vitamin D3 1 Each Tablet, 2 EACH PO DAILY, (Reported) Cyanocobalamin (Vitamin B-12) 5,000 Mcg Tab.rapdis, 5,000 MCG PO DAILY, (Reporte d) Vit W-Ca,Fe,FA(<1 mg) 1 Each Tablet, 1 TAB PO DAILY, (Reported) Patient Home Medication List Home Medication List Reviewed: Yes OB - History Hx of Present Care: Yes Ultrasounds: Normal mid trimester US Obstetrical Complications: None Medical Complications: None Delivery History Adverse Rxn to Tranfusion: No Patient Past Medical History n/a Social History/Family History Recent Infectious Disease Expo: No Alcohol Use: Denies Use Recreational Drug Use: No 2nd Hand Smoke Exposure: No Immunizations Hepatitis A: Yes Hepatitis B: Yes Date of Influenza Vaccine: Apr 30, 2019 OB - Admission Exam Physical Exam Vitals: Vital Signs 06/17/19 23:45 Temp 36.4 Pulse 87 Resp 18 B/P (MAP) 109/68 (82) Pulse Ox 99 O2 Delivery Room Air HEENT: NCAT Heart: Rhythm Normal Lungs: Clear Abdomen: Gravid Extremities: Normal Reflexes: Normal Cervical Dilatation: 10cm Effacement: 100% Station: +2 Membranes: Ruptured Amniotic Fluid: Clear Heart Rate: 130's Accelerations: Accelerations Present Decelerations: No Decelerations Short Term Variability: Present Network Control Operator Variability: Average (6-25) Contractions on Admission: 6-10 Minutes Apart Intensity: Mild Labs Laboratory Tests Test 06/17/19 18:42 Range/Units White Blood Count 11.2 H 4.3-11.0 10^3/uL Red Blood Count 3.96 L 4.35-5.85 10^6/uL Hemoglobin 12.3 11.5-16.0 G/DL Hematocrit 36 35-52 % Mean Corpuscular Volume 90 80-99 FL Mean Corpuscular Hemoglobin 31 25-34 PG Mean Corpuscular Hemoglobin Concent 35 32-36 G/DL Red Cell Distribution Width 13.5 10.0-14.5 % Platelet Count 268 130-400 10^3/uL Mean Platelet Volume 10.1 7.4-10.4 FL Neutrophils (%) (Auto) 77 H 42-75 % Lymphocytes (%) (Auto) 15 12-44 % Monocytes (%) (Auto) 7 0-12 % Eosinophils (%) (Auto) 0 0-10 % Basophils (%) (Auto) 0 0-10 % Neutrophils # (Auto) 8.6 H 1.8-7.8 X 10^3 Lymphocytes # (Auto) 1.7 1.0-4.0 X 10^3 Monocytes # (Auto) 0.8 0.0-1.0 X 10^3 Eosinophils # (Auto) 0.0 0.0-0.3 10^3/uL Basophils # (Auto) 0.0 0.0-0.1 10^3/uL OB - Assessment/Plan/Diagnosis Assessment Assessment: active labor Admission Dx 29 yo @ 39 weeks Active labor GBS neg Admission Status: Inpatient Order (span 2 midnights) Reason for Inpatient Admission: Active labor 39 weeks Plan Plan: Expectant Management MIGUELANGEL YA DO Jun 18, 2019 1:18 am
--- NOTE | 2019-06-18 01:21 | OB Labor & Delivery Record ---
L&D History Date of Service Date of Service: Jun 18, 2019 History Expected Date of Delivery: Jun 23, 2019 Gestational Age in Weeks: 39 Hx : 2 Hx Para: 1 Complications Events: Routine care Operative Indications (Cesarea: N/A-Vaginal Delivery Intrapartal Events: None L&D Stage1 Stage One Onset of Labor - Date: Jun 18, 2019 Monitors and Tracing Monitor Mode: External Heart Rate: 145 Monitor Accelerations: Uniform Monitor Decelerations: None Station: -1 Half-Way Variability: Average (6-10) Short Term Variability: Present Presentation: Vertex Vital Signs VS - Last 72 Hours, by Label 06/17/19 06/17/19 06/17/19 06/17/19 17:40 19:27 19:53 20:20 Temp 36.5 36.3 Pulse 71 64 67 73 Resp 18 18 18 18 B/P (MAP) 119/60 (79) 128/83 (98) 108/66 (80) 132/87 (102) Pulse Ox 97 98 98 O2 Delivery Room Air Room Air Room Air Room Air 06/17/19 06/17/19 06/17/19 06/17/19 20:25 20:30 20:35 20:40 Pulse 93 96 98 86 Resp 18 18 18 18 B/P (MAP) 89/58 (68) 124/63 (83) 115/61 (79) 101/57 (72) Pulse Ox 97 97 98 98 O2 Delivery Room Air Room Air Room Air Room Air 06/17/19 06/17/19 06/17/19 06/17/19 20:45 20:50 20:55 21:00 Temp 35.1 Pulse 76 80 88 79 Resp 18 18 18 18 B/P (MAP) 113/65 (81) 115/66 (82) 98/53 (68) 115/75 (88) Pulse Ox 99 99 99 93 O2 Delivery Room Air Room Air Room Air Room Air 06/17/19 06/17/19 06/17/19 06/17/19 21:15 21:30 21:35 22:00 Temp 35.1 Pulse 92 85 79 73 Resp 18 18 18 18 B/P (MAP) 123/62 (82) 100/63 (75) 112/71 (85) Pulse Ox 98 98 99 97 O2 Delivery Room Air Room Air Room Air Room Air 06/17/19 06/17/19 06/17/19 06/17/19 22:15 22:30 22:45 23:00 Pulse 86 82 88 100 Resp 18 18 18 18 B/P (MAP) 98/62 (74) 98/63 (75) 110/70 (83) 118/77 (91) Pulse Ox 98 99 97 97 O2 Delivery Room Air Room Air Room Air Room Air 06/17/19 06/17/19 06/17/19 23:15 23:30 23:45 Temp 36.4 Pulse 79 83 87 Resp 18 18 18 B/P (MAP) 111/73 (86) 114/74 (87) 109/68 (82) Pulse Ox 96 99 99 O2 Delivery Room Air Room Air Room Air Rupture of Membranes Spontaneous Ruture of Membrane: Yes Amniotic Membrane Rupture Time: 1655 Amniotic Membrane Fluid Desc.: Clear Vaginal Bleeding Description: Normal Show Induction/Anesthesia Epidural Cath Placement - Time: 2016 Progress/Notes Patient presented with SROM, limited contractions so labor was augmented with pitocin, she received an epidural and progressed to complete and +2 station L&D Stage2 Stage Two Stage II Date: Jun 18, 2019 Monitors and Tracing Monitor Mode: External Heart Rate: 145 Monitor Accelerations: Uniform Monitor Decelerations: Variable Executive Chef Variability: Average (6-10) Short Term Variability: Present Position: Right Occiput Anterior Presentation: Vertex Cord Descript/Complications Cord Vessel Description: 3 Vessels Delivery Type Infant Delivery Method: Spontaneous Vaginal Anterior Shoulder: Right Episiotomy/Perineal Laceration Laceraction(s)/Extensions: Yes Episiotomy Description: Perineal Extension/lac, 1st degree Degree (describe repair) perineal laceration occured 1st degree. Repaired using 3-0 rapide vicryl suture Condition of Delivery 1 minute Comment: 8 5 minute Comment: 9 Notes Live female weight pending Condition of Infant Condition of Infant: Living Exam: No Observed Abnormalities Resuscitation Resuscitation: N/A - Spontaneous Resp L&D Stage3 Stage Three Stage III Date: Jun 18, 2019 Pictocin Pitocin Administration mu/min: 6 Pitocin ml/hr: 6 Pitocin Administration Comment: wide open 30 mu at delivery of placenta Placenta Delivery Placenta Delivery: Spontaneous Delivery Summary Summary Estimated blood loss (mL): 300 Attending at delivery: Fenech, Miguelangel DO Condition of Delivery Examined: Cervix Examined, Uterus Explored Post Hemorrhage: No Condition of Mother stable Condition of Infant (s) stable MIGUELANGEL YA DO Jun 18, 2019 1:21 am
--- NOTE | 2019-06-18 01:30 | NUR ---
FF u/0. moderate rubra. infant latched to l breast. pt denies needs.
[2019-06-18] MEDS: OXYTOCIN PRE-MIX DRIP 500 ML IV SCH (01:41)
--- NOTE | 2019-06-18 01:45 | NUR ---
ff u/0. moderate rubra. pt denies needs at this time.
--- NOTE | 2019-06-18 02:00 | NUR ---
ff u/0. Minimal rubra noted. Pt holding in arms. bonding well. denies needs.
--- NOTE | 2019-06-18 02:30 | NUR ---
ff u/0. IFV complete. minimal rubra. no s/s distress noted.
--- NOTE | 2019-06-18 03:00 | NUR ---
Hannah care done. new v pad on. panties on. minimal rubra noted. ff u/0. epidural catheter removed from back. blue tip intact. gown changed. Pt up to sob. denies dizziness. Pt transferred to with standby assist. tolerated well. transferred to room 310 accompanied by in crib and so. pt to bed. blankets arranged. oriented to room. info papers given. will monitor closely. ice water given, denies further needs.
[2019-06-18] MEDS: IBUPROFEN 600 MG (MOTRIN) TAB PO SCH ×4 (03:16→23:37)
[2019-06-18] MEDS ORDERED: CATHETER FLUSH 10 ML SYR IV SCH (06:00)
--- NOTE | 2019-06-18 07:38 | Anesthesia-Regional Post-Op ---
Regional Patient Condition Mental Status: Alert, Oriented x3 Circulation: Same as Pre-Op Headache: Absent Sensation: Full Recovery Motor Block: Absent Post Op Complications Complications None Follow Up Care/Instructions Patient Instructions None needed. Anesthesia/Patient Condition Patient is doing well, no complaints, stable vital signs, no apparent adverse anesthesia problems. No complications reported per nursing. MATTIE WANG CRNA Jun 18, 2019 07:38
[2019-06-18] MEDS: FERROUS SULF 325 MG (IRON) TAB PO SCH (08:53)
[2019-06-18] MEDS: PRENATAL VITAMIN 1 EA TAB PO SCH (08:53)
[2019-06-18] MEDS: DOCUSATE SODIUM 100 MG (COLACE) CAP PO SCH ×2 (08:53→20:32)
[2019-06-18] MEDS ORDERED: DOCU-244 PO (18:11)
[2019-06-18] MEDS ORDERED: BENZ78AE2 TP (18:11)
[2019-06-18] MEDS ORDERED: IBUP-844 PO (18:11)
[2019-06-18] MEDS ORDERED: ACHD5005 PO (18:11)
--- NOTE | 2019-06-18 18:12 | Discharge Inst-Women's Service ---
Discharge Inst-Women's Serv Depart Medication/Instructions New, Converted or Re-Newed RX: RX on Chart Final Diagnosis PPD 1 NVD Problems Reviewed?: Yes Consults/Follow Up Additional Follow Up: Yes Orders/Referrals Dr. Ya in 6weeks Activity Activity: Activity as Tolerated Driving Instructions: No Driving for 1 Week NO SMOKING: NO SMOKING Nothing Inside Vagina: No Douching, No [place], No Tampons Diet Discharge Diet: No Restrictions Symptoms to Report to : Bleeding Excessive, Pain Increased, Fever Over 101 Degrees F, Vaginal Bleeding Increase, Questions/Concerns For Any Problems or Questions: Contact Your Physician MIGUELNAGEL YA DO Jun 18, 2019 6:12 pm
[2019-06-19 06:07] VITALS: BP 104/58
[2019-06-19 06:08] LABS: BASOPHILS % (AUTO) 0 % (0-10); EOSINOPHILS % (AUTO) 1 % (0-10); HEMATOCRIT 31 % (35-52); HEMOGLOBIN 10.4 G/DL (11.5-16.0); LYMPHOCYTES # (AUTO) 2.1 X 10^3 (1.0-4.0); LYMPHOCYTES % (AUTO) 33 % (12-44); MEAN CORPUSCULAR HEMOGLOBIN 31 PG (25-34); MEAN CORPUSCULAR HGB CONC 34 G/DL (32-36); MEAN CORPUSCULAR VOLUME 92 FL (80-99); MEAN PLATELET VOLUME 10.7 FL (7.4-10.4); MONOCYTES # (AUTO) 0.4 X 10^3 (0.0-1.0); MONOCYTES % (AUTO) 6 % (0-12); NEUTROPHILS # (AUTO) 3.8 X 10^3 (1.8-7.8); NEUTROPHILS % (AUTO) 60 % (42-75); PLATELET COUNT 208 10^3/uL (130-400); RED CELL DISTRIBUTION WIDTH 13.4 % (10.0-14.5); WHITE BLOOD COUNT 6.4 10^3/uL (4.3-11.0)
[2019-06-19 07:15] VITALS: BP 112/79
[2019-06-19 07:50] VITALS: BP 112/79
--- NOTE | 2019-06-19 07:59 | Postpartum Progress Note ---
Note Note Day # 1 Subjective: Patient is without complaints. Ambulating, voiding. Tolerating a regular diet without nausea or vomiting. Normal lochia. Pain is well controlled with oral pain medications. Objective: Physical Exam: General - Alert and oriented, no apparent distress Abdomen - Soft, appropriately tender to palpation, non-distended, fundus firm at umbilicus Extremities - no edema, negative Gary's bilaterally Assessment: PPD 1 NVD Acute blood loss anemia Plan: Routine care. Encourage breast feeding. Encourage ambulation. Ferrous sulfate supplementation. Plan for discharge today Vitals - Labs Vital Signs - I&O Vital Signs Date Time Temp Pulse Resp B/P (MAP) Pulse Ox O2 Delivery O2 Flow Rate FiO2 06/19/19 06:07 36.4 56 15 104/58 (73) 98 Room Air 06/18/19 23:56 36.3 56 15 109/70 (83) 95 Room Air 06/18/19 20:51 Room Air 06/18/19 20:37 36.7 72 14 99/57 (71) 96 Room Air 06/18/19 16:04 36.4 92 18 108/61 (77) 97 Room Air 06/18/19 11:59 36.8 70 18 110/63 (79) 96 Room Air 06/18/19 11:46 36.7 68 18 108/67 (81) 98 Room Air 06/18/19 09:00 98 Room Air I & O 06/19/19 07:00 Intake Total 1210 ml Balance 1210 ml Labs Laboratory Tests 06/19/19 05:15: White Blood Count 6.4, Red Blood Count 3.37L, Hemoglobin 10.4L, Hematocrit 31L, Mean Corpuscular Volume 92, Mean Corpuscular Hemoglobin 31, Mean Corpuscular Hemoglobin Concent 34, Red Cell Distribution Width 13.4, Platelet Count 208, Mean Platelet Volume 10.7H, Neutrophils (%) (Auto) 60, Lymphocytes (%) (Auto) 33, Monocytes (%) (Auto) 6, Eosinophils (%) (Auto) 1, Basophils (%) (Auto) 0, Neutrophils # (Auto) 3.8, Lymphocytes # (Auto) 2.1, Monocytes # (Auto) 0.4, Eosinophils # (Auto) 0.0, Basophils # (Auto) 0.0 MIGUELANGEL YA DO Jun 19, 2019 07:59
[2019-06-19] MEDS: PRENATAL VITAMIN 1 EA TAB PO SCH (09:45)
[2019-06-19] MEDS: DOCUSATE SODIUM 100 MG (COLACE) CAP PO SCH (09:45)
[2019-06-19] MEDS: FERROUS SULF 325 MG (IRON) TAB PO SCH (09:45)
--- NOTE | 2019-06-19 10:55 | NUR ---
home instructions given - verbally and written. Pt verbalized understanding. 1250 Ambulated to exit with in car seat and father of baby.
== END 2019-06-19 12:50 | disposition home or self-care (01) | DRG 806 ==
LOC: WSo 17:47 → LDRP 17:48 → WSo 18:09 → LDRP 18:09
PROVIDERS: ADMIT Obstetrics & Gynecology; ATTEND Obstetrics & Gynecology
PROC: 10E0XZZ Delivery of Products of Conception, External Approach (ICD-10-PCS; principal; 2019-06-18)
PROC: 0HQ9XZZ Repair Perineum Skin, External Approach (ICD-10-PCS; 2019-06-18)
PROC: 0W8NXZZ Division of Female Perineum, External Approach (ICD-10-PCS; 2019-06-18)
DX: O70.0 First degree perineal laceration during delivery (principal); O90.81 Anemia of the puerperium; D62 Acute posthemorrhagic anemia; Z3A.39 39 weeks gestation of pregnancy; Z37.0 Single live birth; Z23 Encounter for immunization
CPT/HCPCS: 36415; 85025; 86850; 86900; 86901; 90707; 99212